=== PATIENT | male | born 1985 | race African-American/Black ===

== ENCOUNTER 2021-01-12 08:57 | Emergency (ER) | payer MEDICAID, OTHER ==
[~2021-01-12] VITALS: Ht 177.8 cm; Wt 66.0 kg
[~2021-01-12 08:57] MED LIST: BENA20TA77; EPINEPHRINE 0.1MG/ML (1:10,000) 10ML SYR ONE; HAL5
[2021-01-12] MEDS ORDERED: IPRATROPIUM BROMIDE (0.02%) 0.5MG/2.5ML NEB HHN STA ×2 (09:06)
[2021-01-12] MEDS ORDERED: ALBUTEROL (0.083%) 2.5MG/3ML NEB HHN STA ×2 (09:06)
[2021-01-12] MEDS ORDERED: METHYLPREDNISOLONE SOD SUCC 125 MG/2 ML VIAL IV STA ×2 (09:06)
[2021-01-12 09:20] VITALS: BP 120/70
[2021-01-12] MEDS ORDERED: OLANZAPINE 5MG TABLET ODT PO ONE (09:45)
== END 2021-01-12 11:32 ==
LOC: ER 09:09
DX: I46.9 Cardiac arrest, cause unspecified (principal); J45.909 Unspecified asthma, uncomplicated; Z59.0 Homelessness
CPT/HCPCS: 31500; 82962; 92950; 93005; 99291; J3490